=== PATIENT | female | born 2000 | race Caucasian/White ===

== ENCOUNTER 2024-02-03 22:23 | Observation (INO) | payer OTHER ==
[~2024-02-03] VITALS: Ht 162.6 cm; Wt 108.0 kg
[2024-02-03] MEDS ORDERED: NS 1,000 ML IV ONE (23:00)
[2024-02-03] MEDS ORDERED: Sucralfate Susp 1 GM/10 ML UD PO ONE (23:00)
[2024-02-03 23:38] LABS: BASO % 0.2 % (0.0-2.0); GRAN # 11.3 K/mm3 (1.4-6.5); GRAN % 86.7 % (42.2-75.2); HEMATOCRIT 44.2 % (37.0-47.0); HEMOGLOBIN 14.5 g/dl (12.5-16.0); LYMPH # 1.3 K/mm3 (1.2-3.4); LYMPH % 9.8 % (20.0-51.0); MEAN CELL VOLUME 89 fl (80.0-100.0); MEAN CORPUSCULAR HEMOGLOBIN 29 pg (27-31); MEAN CORPUSCULAR HGB CONC 33 g/dl (33.0-37.0); MEAN PLATELET VOLUME 9.7 fl (7.4-10.4); MONO # 0.4 K/mm3 (0.1-0.6); MONO % 2.8 % (1.7-9.3); PLATELET COUNT 359 K/mm3 (130-400); RED BLOOD COUNT 4.99 M/mm3 (4.10-5.30); REDCELL DISTRIBUTION WIDTH-CV 13.3 % (11.5-14.5)
[2024-02-03 23:51] LABS: ALBUMIN 3.9 g/dL (3.5-5.0); BILIRUBIN,TOTAL 0.5 mg/dL (0.2-1.2); C-REACTIVE PROTEIN 0.7 mg/dL (0.00-0.50); CALCIUM 9.5 mg/dL (8.4-10.2); CREATININE, serum 0.83 mg/dL (0.57-1.11); POTASSIUM 3.7 mEq/L (3.5-4.5)
[2024-02-04] VITALS (13 sets, daily range): BP systolic 99–138; BP diastolic 56–81; PULSE 80–116; TEMP 97–98.5
[2024-02-04] MEDS ORDERED: Iohexol 300 - 100 ML VIAL IV ONE (00:01)
[2024-02-04] MEDS ORDERED: NS 100 ML IV SCH (00:02)
[2024-02-04] MEDS ORDERED: Ondansetron 4 MG/2 ML VIAL IV PRN ×2 (01:15→09:15)
[2024-02-04] MEDS ORDERED: NS 1,000 ML IV SCH (01:15)
[2024-02-04] MEDS ORDERED: HYDROmorphone 0.5 MG/0.5 ML SYRINGE IV PRN (01:15)
--- NOTE | 2024-02-04 02:20 | NUR ---
PT ADMITTED TO ROOM 323 PER WC FROM ED, AMBULATED INDEPENDENTLY TO BED. ON RA, VSS, AFEBRILE. INT TO RAC PATENT/SECURE, IVF STARTED @ 125CC/HR. ADMISSION ASSESSMENT, MED REC, ADMISSION INTAKE COMPLETED. ORIENTED PT TO ROOM, POC AND SURGICAL FLOOR. NO QUESTIONS OR CONCERNS AT THIS TIME.
[2024-02-04] MEDS ORDERED: LR 1,000 ML IV SCH (08:15)
--- NOTE | 2024-02-04 08:16 | NUR ---
CONSENT SIGNED AND ON THE CHART, PREOP FLUID HUNG.
[2024-02-04] MEDS ORDERED: Rocuronium 50 MG/5 ML Multi-Dose VIAL ONE (09:06)
[2024-02-04] MEDS ORDERED: Lidocaine PF 2% (20 MG/ML) 5 ML VIAL ONE (09:06)
[2024-02-04] MEDS ORDERED: dexAMETHasone 10 MG/ML VIAL ONE (09:06)
[2024-02-04] MEDS ORDERED: Ondansetron 4 MG/2 ML VIAL ONE (09:06)
[2024-02-04] MEDS ORDERED: fentaNYL 50 MCG/ML 2 ML VIAL ONE (09:06)
[2024-02-04] MEDS ORDERED: Morphine 4 MG/ML VIAL IV PRN (09:15)
[2024-02-04] MEDS ORDERED: HYDROmorphone 2 MG/1 ML VIAL IV PRN (09:15)
[2024-02-04] MEDS ORDERED: droPERidol 2.5 MG/ML 2 ML VIAL IV PRN (09:15)
[2024-02-04] MEDS ORDERED: fentaNYL 50 MCG/ML 2 ML VIAL IV PRN (09:15)
[2024-02-04] MEDS ORDERED: Meperidine 50 MG/ML 1 ML VIAL IV PRN (09:15)
[2024-02-04] MEDS ORDERED: Ketorolac 30 MG/ML VIAL ONE (10:01)
--- NOTE | 2024-02-04 12:05 | NUR ---
KYLE ARRIVED FROM PACU, DROWSY BUT ABLE TO ANSWER QUESTIONS. VSS. POST OP VITALS INITIALIZED. X3 LAP SITE CDI. CALL LIGHT WITHIN REACH
--- NOTE | 2024-02-04 12:15 | NUR ---
PATIENT MORE AWAKE, SITTING UP IM BED EATING LUNCH, VITALS STABLE. PER PATIENT HER PAIN IS MORE TOLERABLE THAN PRIOR TO SURGERY. PATIENTS CALL LIGHT WITHIN REACH.
--- NOTE | 2024-02-04 12:54 | NUR ---
PATIENT AWAKE AND ALERT, SITTING UP IN BED. PATIENTS FRIEND AT BEDSIDE. POST OP VITALS COMPLETE. PATIENT SO FAR HAS TOELRATED 50% OF LUNCH. PER PATIENT HER PAIN IS 0 OUT OF 10. CALL LIGHT WITHI REACH. AFTER EATIGN KYLE AGREED TO TAKE A WALK.
--- NOTE | 2024-02-04 13:45 | NUR ---
MD CAME TO BEDSIDE, PATIENT VOICES BEING READY FOR DISCHARGE. PATIENT HAS TOLERATED ORAL INTAKE, HAS TOILETED AND WALKED THE HALLS WITH 0/10 PAIN.
[2024-02-04] MEDS ORDERED: NORCO 325 MG-51 TAB PO (13:47)
--- NOTE | 2024-02-04 13:57 | NUR ---
Data: Electrical Systems Design Engineer attempted to visit Patient during Electrical Systems Design Engineer rounds. Patient had a visitor. Plan of Care: Chaplains will remain available as needed/requested while Patient is admitted to this hospital.
--- NOTE | 2024-02-04 14:11 | NUR ---
PATIENT GIVNE DISCHARGE INSTRUCTIONS AND EDUCAITON. IV REMOVED. ALL QUESTIONS ANSWERED.
== END 2024-02-04 14:15 | disposition home or self-care (01) ==
LOC: COL.ER 22:23 → SURG 02-04 01:09
PROVIDERS: Emergency Medicine; ADMIT Surgery
DX: K80.00 Calculus of gallbladder with acute cholecystitis without obstruction (principal); D13.4 Benign neoplasm of liver; E66.9 Obesity, unspecified; Z68.38 Body mass index [BMI] 38.0-38.9, adult
CPT/HCPCS: G0378; J0690; J1100; J1170; J1885; J2405; J2543; J2704; J2765; J3010; J7030; J7120; Q9967